=== PATIENT | male | born 1965 | race Caucasian/White ===

== ENCOUNTER 2019-06-29 13:45 | Emergency (ER) | payer MEDICARE, MEDICAID ==
[~2019-06-29] VITALS: Ht 170.2 cm; Wt 68.0 kg
[2019-06-29] MEDS ORDERED: PROZAC20 M1 PO (13:57)
[2019-06-29] MEDS ORDERED: WELLBUTRIN XL300 MG PO (13:58)
[2019-06-29] MEDS ORDERED: ATIVAN1 M1 PO (14:18)
[2019-06-29] MEDS ORDERED: ZOFRAN ODT4 MG SUBLING (14:18)
[2019-06-29 14:45] VITALS: BP 128/68
== END 2019-06-29 14:48 | disposition home or self-care (01) ==
LOC: M.ERS 13:45
DX: F32.9 Major depressive disorder, single episode, unspecified (principal); F15.10 Other stimulant abuse, uncomplicated; F10.10 Alcohol abuse, uncomplicated; Y90.9 Presence of alcohol in blood, level not specified; F41.9 Anxiety disorder, unspecified; J44.9 Chronic obstructive pulmonary disease, unspecified; F17.210 Nicotine dependence, cigarettes, uncomplicated

== ENCOUNTER 2019-08-01 20:49 | Emergency (ER) | payer MEDICARE, MEDICAID ==
[~2019-08-01] VITALS: Ht 170.2 cm; Wt 65.8 kg
[~2019-08-01 20:49] MED LIST: ATIVAN1 M1 PO; PROZAC20 M1 PO; WELLBUTRIN XL300 MG PO; ZOFRAN ODT4 MG SUBLING
[2019-08-01] MEDS ORDERED: ZYPREXA5 MG PO (21:05)
[2019-08-01 22:05] LABS: ABSOLUTE EOSINOPHILS 0.1 thou/uL (0.0-0.7); ABSOLUTE LYMPHOCYTES 1.9 thou/uL (0.8-5.3); ABSOLUTE MONOCYTES 0.8 thou/uL (0.0-1.2); ABSOLUTE NEUTROPHILS 4.9 thou/uL (1.6-8.1); BASOPHILS 0.4 %; EOSINOPHILS 1.7 %; HEMATOCRIT 48.1 % (42.0-52.0); HEMOGLOBIN 16.1 gm/dL (14.0-18.0); LYMPHOCYTES 24.1 %; MCH 29.9 pg (26.0-34.0); MCHC 33.5 g/dL (28.0-37.0); MCV 89.2 fL (80.0-100.0); MPV 9.8 fl. (7.2-11.1); NUCLEATED RBCS 0 /100WBC; POLYS 63.8 %; RBC 5.39 mil/uL (4.50-6.00); RDW-CV 15.3 % (10.5-14.5); WBC 7.7 thou/uL (4.0-11.0)
[2019-08-01 22:26] LABS: CALCIUM 9.5 mg/dL (8.5-10.1); CREATININE 0.7 mg/dL (0.6-1.3); POTASSIUM 4.3 mmol/L (3.5-5.1)
[2019-08-01 22:30] LABS: ALBUMIN 3.8 g/dL (3.4-5.0); TOTAL BILIRUBIN 0.5 mg/dL (<0.1-1.0)
[2019-08-01 22:48] LABS: CLUMPED PLTS RARE; LARGE PLATELETS FEW; PLATELET ESTIMATE DECREASED
[2019-08-01 22:50] LABS: PLATELET COUNT* 130 thou/uL (150-400)
[2019-08-01 23:58] VITALS: BP 94/64
== END 2019-08-02 00:04 | disposition home or self-care (01) ==
LOC: M.ERS 20:49
PROVIDERS: Emergency Medicine
DX: F10.129 Alcohol abuse with intoxication, unspecified (principal); M25.571 Pain in right ankle and joints of right foot; J44.9 Chronic obstructive pulmonary disease, unspecified; F32.9 Major depressive disorder, single episode, unspecified; F41.9 Anxiety disorder, unspecified; F17.200 Nicotine dependence, unspecified, uncomplicated; Z98.890 Other specified postprocedural states

== ENCOUNTER 2019-08-06 13:43 | Inpatient (IN) | payer MEDICARE, MEDICAID ==
[~2019-08-06] VITALS: Ht 170.2 cm; Wt 68.6 kg
[2019-08-06] VITALS (12 sets, daily range): BP systolic 92–153; BP diastolic 36–86
--- NOTE | ~2019-08-06 | EKG ---
[place] [address] ELECTROCARDIOGRAM REPORT Name: AUSTIN PAYNE Room: [address] ADM IN M.R.#: [id number] Admission: 08/06/19 Attend Phys: Jay Rosario Discharge: Date of : 61 Report #: [id number] THIS REPORT FOR: //name// [facility] ED Test Date: 2019-08-06 Test Time: 13:56:07 Pat Name: AUSTIN PAYNE Department: Room: [address] Gender: M Calibration Tester: MAMIE : 1965 Requested By: Johnny Eason Order Number: [id number] Reading MD: Measurements Intervals [place] Rate: 88 P: 0 ND: 99 QRS: 94 QRSD: 118 T: 58 QT: 367 QTc: 444 Interpretive Statements Sinus tachycardia Multiform ventricular premature complexes Short ND interval Nonspecific intraventricular conduction delay Minimal ST depression, inferior leads Baseline wander in lead(s) V2 No previous ECG available for comparison [email or web address] By: [id number] Epiphany Epiphany, /EPI
[~2019-08-06 13:43] MED LIST changes: +ZYPREXA5 MG PO
[2019-08-06] MEDS ORDERED: XARELTO20 MG PO (13:54)
[2019-08-06 14:15] LABS: HEMATOCRIT 41.1 % (42.0-52.0); HEMOGLOBIN 13.8 gm/dL (14.0-18.0); MCH 29.6 pg (26.0-34.0); MCHC 33.6 g/dL (28.0-37.0); MCV 87.9 fL (80.0-100.0); NUCLEATED RBCS 0 /100WBC; PLATELET COUNT* 251 thou/uL (150-400); RBC 4.68 mil/uL (4.50-6.00); RDW-CV 15.3 % (10.5-14.5); WBC 3.8 thou/uL (4.0-11.0)
[2019-08-06 14:28] LABS: CALCIUM 8.8 mg/dL (8.5-10.1); CREATININE 0.8 mg/dL (0.6-1.3); POTASSIUM 3.7 mmol/L (3.5-5.1); PROTIME 10.4 Seconds (9.20-11.50)
[2019-08-06 14:33] LABS: ALBUMIN 3.2 g/dL (3.4-5.0); TOTAL BILIRUBIN 0.7 mg/dL (<0.1-1.0); TOTAL PROTEIN 7.2 g/dL (6.4-8.2)
[2019-08-06 14:45] LABS: SALICYLATE < 2.8 mg/dL (2.8-20.0)
[2019-08-06 14:46] LABS: ACETAMINOPHEN < 2 ug/mL (10-30); ALCOHOL < 10 mg/dL (<10)
[2019-08-06 15:03] LABS: ABSOLUTE EOSINOPHILS 0.1 thou/uL (0.0-0.7); ABSOLUTE LYMPHOCYTES 0.7 thou/uL (0.8-5.3); ABSOLUTE MONOCYTES 0.7 thou/uL (0.0-1.2); ABSOLUTE NEUTROPHILS 2.3 thou/uL (1.6-8.1)
[2019-08-06 15:04] LABS: PLATELET ESTIMATE ADEQUATE
[2019-08-06 15:05] LABS: ANISOCYTOSIS Occasional
--- NOTE | 2019-08-06 15:39 | EKG ---
[place] [address] ELECTROCARDIOGRAM REPORT Name: AUSTIN PAYNE Room: [place] [address] ADM IN [facility]#: [id number] Admission: 08/06/19 Attend Phys: Jay Rosario Discharge: Date of : 61 Report #: [id number] THIS REPORT FOR: //name// [facility] ED Test Date: 2019-08-06 Test Time: 13:57:37 Pat Name: AUSTIN PAYNE Department: Room: [facility] Gender: M Advertising Account Manager: MAMIE : 1965 Requested By: Ashish Boyer Order Number: [id number] MD: Tyson Dodge Measurements Intervals [place] Rate: 96 P: 0 AL: QRS: 69 QRSD: 91 T: 61 QT: 379 QTc: 479 Interpretive Statements Sinus rhythm Diffuse artifact No previous ECG available for comparison Electronically Signed On 08-06-2019 15:39:07 [employer] [employer] by Tyson Dodge [email or web address] <ELECTRONICALLY SIGNED> By: Tyson Dodge MD, [facility] 08/06/19 1539 [id number] Tyson Dodge MD, FACC /EPI
[2019-08-07] VITALS (13 sets, daily range): BP systolic 113–154; BP diastolic 58–95
[2019-08-07 09:16] LABS: URINE BILIRUBIN NEGATIVE (Negative); URINE BLOOD NEGATIVE (Negative); URINE CLARITY CLEAR; URINE COLOR YELLOW; URINE GLUCOSE-RANDOM NEGATIVE (Negative); URINE KETONES NEGATIVE (Negative); URINE LEUKOCYTES-REFLEX NEGATIVE (Negative); URINE NITRITE-REFLEX NEGATIVE (Negative); URINE PROTEIN NEGATIVE (Negative); URINE SPECIFIC GRAVITY 1.015 (1.005-1.030)
[2019-08-07 09:27] LABS: AMP/METHAMP Negative (Negative); BARBITURATES Negative (Negative); BENZODIAZEPINES POSITIVE (Negative); COCAINE Negative (Negative); METHADONE Negative (Negative); OPIATES Negative (Negative); PCP Negative (Negative); THC Negative (Negative)
[2019-08-08 05:27] LABS: ABSOLUTE EOSINOPHILS 0.2 thou/uL (0.0-0.7); ABSOLUTE LYMPHOCYTES 1.3 thou/uL (0.8-5.3); ABSOLUTE MONOCYTES 0.7 thou/uL (0.0-1.2); ABSOLUTE NEUTROPHILS 1.2 thou/uL (1.6-8.1); BASOPHILS 0.9 %; EOSINOPHILS 6.2 %; HEMATOCRIT 40.8 % (42.0-52.0); HEMOGLOBIN 13.8 gm/dL (14.0-18.0); MCH 30.2 pg (26.0-34.0); MCHC 33.9 g/dL (28.0-37.0); MONOCYTES 19.9 %; MPV 8.3 fl. (7.2-11.1); NUCLEATED RBCS 0 /100WBC; PLATELET COUNT* 219 thou/uL (150-400); RBC 4.58 mil/uL (4.50-6.00); RDW-CV 15.1 % (10.5-14.5); WBC 3.4 thou/uL (4.0-11.0)
[2019-08-08 05:37] LABS: CALCIUM 8.3 mg/dL (8.5-10.1); CREATININE 0.8 mg/dL (0.6-1.3); POTASSIUM 3.7 mmol/L (3.5-5.1)
[2019-08-08 08:14] VITALS: BP 134/77
[2019-08-08 10:11] LABS: CALCIUM 8.9 mg/dL (8.5-10.1); CREATININE 0.8 mg/dL (0.6-1.3); MAGNESIUM 1.9 mg/dL (1.8-2.4); POTASSIUM 3.7 mmol/L (3.5-5.1)
[2019-08-08 13:26] VITALS: BP 123/77
[2019-08-08 16:00] VITALS: BP 129/67
[2019-08-08 19:22] VITALS: BP 117/79
[2019-08-08 20:00] VITALS: BP 123/66
[2019-08-09] VITALS: BP 121/65
[2019-08-09 04:00] VITALS: BP 111/59
[2019-08-09 05:41] LABS: ALBUMIN 2.6 g/dL (3.4-5.0); CALCIUM 8.6 mg/dL (8.5-10.1); CREATININE 0.8 mg/dL (0.6-1.3); MAGNESIUM 1.8 mg/dL (1.8-2.4); PHOSPHORUS* 3.9 mg/dL (2.5-4.9); POTASSIUM 3.5 mmol/L (3.5-5.1)
[2019-08-09 08:56] VITALS: BP 135/79
[2019-08-09 17:50] VITALS: BP 150/81
[2019-08-09 20:44] VITALS: BP 150/86
[2019-08-10] VITALS: BP 103/54
[2019-08-10 04:00] VITALS: BP 128/76
[2019-08-10 05:14] LABS: CALCIUM 8.5 mg/dL (8.5-10.1); CREATININE 0.8 mg/dL (0.6-1.3); POTASSIUM 3.6 mmol/L (3.5-5.1)
[2019-08-10 07:41] VITALS: BP 130/81
[2019-08-10 12:04] VITALS: BP 122/75
[2019-08-10 16:33] VITALS: BP 125/76
[2019-08-10 20:14] VITALS: BP 134/81
[2019-08-11] VITALS: BP 119/44
[2019-08-11 04:00] VITALS: BP 104/69
[2019-08-11 04:57] LABS: ABSOLUTE BASOPHILS 0.1 thou/uL (0.0-0.2); ABSOLUTE EOSINOPHILS 0.3 thou/uL (0.0-0.7); ABSOLUTE LYMPHOCYTES 1.9 thou/uL (0.8-5.3); ABSOLUTE MONOCYTES 0.6 thou/uL (0.0-1.2); ABSOLUTE NEUTROPHILS 2.4 thou/uL (1.6-8.1); BASOPHILS 1.1 %; EOSINOPHILS 5.3 %; HEMATOCRIT 40.3 % (42.0-52.0); HEMOGLOBIN 13.7 gm/dL (14.0-18.0); LYMPHOCYTES 36.5 %; MCH 30.4 pg (26.0-34.0); MCV 89.5 fL (80.0-100.0); MONOCYTES 11.1 %; MPV 8.4 fl. (7.2-11.1); NUCLEATED RBCS 0 /100WBC; PLATELET COUNT* 216 thou/uL (150-400); RDW-CV 15.9 % (10.5-14.5); WBC 5.2 thou/uL (4.0-11.0)
[2019-08-11 05:16] LABS: CALCIUM 8.8 mg/dL (8.5-10.1); CREATININE 1.1 mg/dL (0.6-1.3); POTASSIUM 4.5 mmol/L (3.5-5.1)
[2019-08-11 08:00] VITALS: BP 124/79
[2019-08-11] MEDS ORDERED: ATIVAN1 M1 PO (11:53)
[2019-08-11] MEDS ORDERED: TIZANIDINE4 MG/1 TA1 PO (11:55)
[2019-08-11] MEDS ORDERED: PEPCID20 MG PO (11:56)
[2019-08-11 12:00] VITALS: BP 117/57
[2019-08-11] MEDS ORDERED: SUPER THERAVIT1 EACH PO (12:00)
[2019-08-11 12:08] VITALS: BP 124/79
== END 2019-08-11 15:10 | disposition home or self-care (01) | DRG 897 ==
LOC: M.ERS 13:43 → M.ICU 15:07 → M.TBA-ER 15:07 → M.ICU 15:43 → M.2W 08-09 17:54
PROVIDERS: Emergency Medicine Emergency Medical Services; Family Medicine; ADMIT Internal Medicine
DX: F10.239 Alcohol dependence with withdrawal, unspecified (principal); R65.10 Systemic inflammatory response syndrome (SIRS) of non-infectious origin without acute organ dysfunction; E44.1 Mild protein-calorie malnutrition; J44.9 Chronic obstructive pulmonary disease, unspecified; F32.9 Major depressive disorder, single episode, unspecified; F41.9 Anxiety disorder, unspecified; Z96.652 Presence of left artificial knee joint; D64.9 Anemia, unspecified; G89.29 Other chronic pain; M54.9 Dorsalgia, unspecified; F17.210 Nicotine dependence, cigarettes, uncomplicated; Z68.23 Body mass index [BMI] 23.0-23.9, adult; Z79.899 Other long term (current) drug therapy

== ENCOUNTER 2019-08-17 00:07 | Emergency (ER) | payer MEDICARE, MEDICAID ==
[~2019-08-17] VITALS: Ht 167.6 cm; Wt 67.5 kg
[~2019-08-17 00:07] MED LIST changes: +PEPCID20 MG PO; +SUPER THERAVIT1 EACH PO; +TIZANIDINE4 MG/1 TA1 PO; +XARELTO20 MG PO
[2019-08-17 01:24] VITALS: BP 118/62
== END 2019-08-17 01:24 | disposition home or self-care (01) ==
LOC: M.ERS 00:07
DX: S93.492A Sprain of other ligament of left ankle, initial encounter (principal); J44.9 Chronic obstructive pulmonary disease, unspecified; Z96.652 Presence of left artificial knee joint; W18.39XA Other fall on same level, initial encounter; Y93.89 Activity, other specified; Y92.89 Other specified places as the place of occurrence of the external cause; Y99.8 Other external cause status